=== PATIENT | male | born 1980 | race Caucasian/White ===

== ENCOUNTER 2017-09-01 23:14 | Emergency (ER) | payer SELFPAY ==
--- NOTE | 2017-09-01 23:54 | ED ---
Lower Extremity - HPI Summary HPI Summary: 37M presents with possible left foot injury. He states that on he twisted his ankle. Since then the swelling has increased. He does not have feeling in his feet due to old injury so can not tell if is in pain or not. has swelling to ankle and foot. has redness to top of left foot near great toe. no other injury. he has been using crutches to get around. He has been wear work boots. - History of Current Complaint Chief Complaint: EDExtremityLower Stated Complaint: LT FOOT INJURY Time Seen by Provider: 09/01/17 23:34 Pain Intensity: 2 - Allergies/Home Medications Allergies/Adverse Reactions: Allergies Allergy/AdvReac Type Severity Reaction Status Date / Time No Known Allergies Allergy Verified 02/27/15 18:05 PMH/Surg Hx/FS Hx/Imm Hx Endocrine/Hematology History: Reports: Hx Diabetes - type 1 Cardiovascular History: Denies: Hx Myocardial Infarction - Surgical History Surgery Procedure, Year, and Place: SPINAL FUSION 2000 Infectious Disease History: No Infectious Disease History: Denies: Traveled Outside the [place] in Last 30 Days - Family History Known Family History: Positive: Hypertension - Social History Alcohol Use: Daily Alcohol Amount: 2/DAY Substance Use Type: Reports: None Smoking Status (MU): Current Every Day Smoker Type: Cigarettes Amount Used/How Often: 1 PPD Length of Time of Smoking/Using Tobacco: years Have You Smoked in the Last Year: Yes Review of Systems Negative: Fever Negative: Chest Pain Negative: Shortness Of Breath Positive: Edema - left foot All Other Systems Reviewed And Are Negative: Yes Physical Exam Triage Information Reviewed: Yes Vital Signs On Initial Exam: Initial Vitals Temp Pulse Resp BP Pulse Ox 98.7 F 100 16 163/85 99 09/01/17 23:20 09/01/17 23:20 09/01/17 23:20 09/01/17 23:20 09/01/17 23:20 Vital Signs Reviewed: Yes Appearance: Positive: Well-Appearing Skin: Positive: Warm, Dry, Other - erythema to top of right big toe without warmth Head/Face: Positive: Normal Head/Face Inspection Eyes: Positive: Normal, Conjunctiva Clear Respiratory/Lung Sounds: Positive: Clear to Auscultation, Breath Sounds Present Cardiovascular: Positive: Normal, RRR Musculoskeletal: Positive: Strength/ROM Intact - left foot, Other - good pulses , capillary refill<2secs Neurological: Positive: Normal Psychiatric: Positive: Normal Diagnostics - Vital Signs Vital Signs Temp Pulse Resp BP Pulse Ox 09/01/17 23:20 98.7 F 100 16 163/85 99 - Laboratory Lab Statement: Any lab studies that have been ordered have been reviewed, and results considered in the medical decision making process. Lower Extremity Course/Dx - Course Course Of Treatment: 37M presents with possible left foot injury. He states that on he twisted his ankle. Since then the swelling has increased. He does not have feeling in his feet due to old injury so can not tell if is in pain or not. has swelling to ankle and foot. has redness to top of left foot near great toe. no other injury. he has been using crutches to get around. He has been wear work boots. on exam has erythema to great toe without warm appears more like ecchmoysis rather than cellulitis. has full ROM of toe. I read xray as normal. will write a script for keflex and told if redness changes to start keflex. will discharge with post op shoes. patient understand and agrees with plan. - Diagnoses Differential Diagnosis/HQI/PQRI: Positive: Cellulitis, Fracture (Closed), Sprain , Strain Provider Diagnoses: Injury of left foot Discharge - Discharge Plan Condition: Good Disposition: HOME Prescriptions: Cephalexin CAP* [Keflex CAP*] 500 mg PO BID #20 cap Patient Education Materials: Foot Sprain (ED) Referrals: [facility] [Outside] Additional Instructions: Does not appear like cellulitis at this point, if develop warmth to area or spreading redness start antibiotic twice a day for 10 days Ice, elevate Keep off area as much as possible Establish care with primary Return to ED if develop any new or worsening symptoms
[2017-09-02 00:28] VITALS: BP 131/82
--- NOTE | 2017-09-02 07:43 | RAD ---
HISTORY: Left ankle injury COMPARISONS: March 05, 2010 VIEWS: 3, Frontal, lateral, and oblique views of the left ankle FINDINGS: BONE DENSITY: Normal. BONES: There is no displaced fracture. JOINTS: There is osteoarthritis of the tibiotalar and fibulotalar articulations. ALIGNMENT: There is no dislocation. SOFT TISSUES: Unremarkable. OTHER FINDINGS: None. IMPRESSION: OSTEOARTHRITIS. NO ACUTE OSSEOUS INJURY. IF SYMPTOMS PERSIST, RECOMMEND REPEAT IMAGING.
--- NOTE | 2017-09-02 07:44 | RAD ---
HISTORY: Left foot injury COMPARISONS: July 04, 2010 VIEWS: 3, Frontal, lateral, and oblique views of the left foot FINDINGS: BONE DENSITY: Normal. BONES: There is no displaced fracture. JOINTS: There is osteoarthritis of the ankle. ALIGNMENT: There is no dislocation. SOFT TISSUES: Unremarkable. OTHER FINDINGS: None. IMPRESSION: NO ACUTE OSSEOUS INJURY. IF SYMPTOMS PERSIST, RECOMMEND REPEAT IMAGING.
== END 2017-09-02 00:32 | disposition home or self-care (01) ==
LOC: ED 23:14
DX: S99.922A Unspecified injury of left foot, initial encounter (principal); R60.0 Localized edema; F17.210 Nicotine dependence, cigarettes, uncomplicated; E10.8 Type 1 diabetes mellitus with unspecified complications; X58.XXXA Exposure to other specified factors, initial encounter; Y93.9 Activity, unspecified; Y92.9 Unspecified place or not applicable
CPT/HCPCS: 99282